=== PATIENT | female | born 1970 | race Two or more races ===

== ENCOUNTER → 2020-12-29 | Outpatient (CLI) | payer OTHER ==
--- NOTE | 2020-12-29 08:37 | RAD ---
Limited abdominal ultrasound. INDICATION: 50-year-old woman with abdominal mass left lower quadrant, and abdominal mass right upper quadrant. Patient denies noticing any masses on self exam. TECHNIQUE: Grayscale ultrasound imaging of the right upper quadrant and left lower quadrant abdominal wall was performed. FINDINGS: In the areas of reported concern, no sonographic mass or fluid collection is identified. IMPRESSION: No sonographic masses identified in the right upper quadrant or left lower quadrant abdomen. CT with or without IV contrast of the abdomen and pelvis could help further evaluate if clinically wa rranted. Electronically signed by: Marc East MD (12/29/2020 8:34 AM) [id number]
== END ==
LOC: US 08:42
PROVIDERS: ATTEND Family Medicine
DX: R19.01 Right upper quadrant abdominal swelling, mass and lump (principal); R19.04 Left lower quadrant abdominal swelling, mass and lump
CPT/HCPCS: 76705

== ENCOUNTER → 2022-01-31 | Outpatient (CLI) | payer OTHER ==
[2022-01-31] MEDS: GADOTERATE 7.5 MMOL/15ML VIAL. IVP ONE (10:22)
--- NOTE | 2022-01-31 16:08 | RAD ---
MRI BRAIN WO+W History:Reason: CHRONIC VERTIGO 15mL CLARISCAN / Spl. Instructions: / History: Technique: Multiplanar, multi sequential without and with intravenous contrast MR imaging was perform ed of the brain. Comparison: July 29, 2014 Findings: No acute infarct. No intracranial hemorrhage. No mass effect. No hydrocephalus. No pathologic enhanc ement. Extra-axial spaces are unremarkable. Imaged orbits are unremarkable. Imaged paranasal sinuses and mastoid air cells are clear. Impression: 1. No acute intracranial abnormality. Electronically signed by: Ghanshyam Barrios DO (01/31/2022 4:06 PM) [id number]
== END ==
LOC: MRI 09:25
PROVIDERS: ATTEND Nurse Practitioner Primary Care
DX: R42 Dizziness and giddiness (principal)
CPT/HCPCS: 70553; A9575